=== PATIENT | male | born 1990 | race Asian ===

== ENCOUNTER 2024-07-16 07:56 | Day surgery (SDC) | payer BC ==
[2024-07-15 13:22] VITALS: BMI 28.3
[2024-07-16] MEDS ORDERED: AFRIN NASAL MIST 15 ML BOT ONE ×2 (08:01→10:44)
[2024-07-16] MEDS ORDERED: EPINEPHrine 1 MG/ML VIAL ONE (08:01)
[2024-07-16] MEDS ORDERED: Mupirocin 2% Ointment 22 GM Tube ONE (08:01)
[2024-07-16] MEDS ORDERED: Lidocaine 1% w/Epinephrine 1:200K 30 ML VIAL ONE (08:01)
[2024-07-16] MEDS ORDERED: fentaNYL 50 mcg/mL 1 mL Vial ONE (10:49)
[2024-07-16] MEDS ORDERED: PROPOFOL 20 ML ONE (10:49)
[2024-07-16] MEDS ORDERED: Dexamethasone 4 mg/ml Vial ONE (10:51)
[2024-07-16] MEDS ORDERED: Lidocaine 1% PF 5 ML VIAL ONE (10:51)
[2024-07-16] MEDS ORDERED: Ondansetron PF 4 MG/2 ML Vial ONE (10:51)
[2024-07-16] MEDS ORDERED: Acetaminophen 500 MG TAB ONE (10:57)
[2024-07-16] MEDS ORDERED: Oxymetazoline HCl 0.05% ( 15 ML ) ONE (10:58)
[2024-07-16] MEDS ORDERED: SUCCINYLCHOLINE/SOD CL,ISO/PF 200 MG/10 ML SYRINGE FS ONE (11:12)
[2024-07-16] MEDS ORDERED: PHENYLEPHRINE-NS 100 MCG/ML 10 ML SYRINGE ONE (12:07)
[2024-07-16] MEDS ORDERED: Hydrocodone-Acetamin 15 ML UDCUP ONE (13:48)
== END 2024-07-16 14:30 | disposition home or self-care (01) ==
LOC: CSHSDC 07:56
PROVIDERS: ATTEND Specialist
PROC: 099X8ZZ Drainage of Left Sphenoid Sinus, Via Natural or Artificial Opening Endoscopic (ICD-10-PCS; principal; 2024-07-16)
PROC: 099Q8ZZ Drainage of Right Maxillary Sinus, Via Natural or Artificial Opening Endoscopic (ICD-10-PCS; principal; 2024-07-16)
PROC: 09BS8ZZ Excision of Right Frontal Sinus, Via Natural or Artificial Opening Endoscopic (ICD-10-PCS; principal; 2024-07-16)
PROC: 09TV8ZZ Resection of Left Ethmoid Sinus, Via Natural or Artificial Opening Endoscopic (ICD-10-PCS; principal; 2024-07-16)
PROC: 099W8ZZ Drainage of Right Sphenoid Sinus, Via Natural or Artificial Opening Endoscopic (ICD-10-PCS; principal; 2024-07-16)
PROC: 099R8ZZ Drainage of Left Maxillary Sinus, Via Natural or Artificial Opening Endoscopic (ICD-10-PCS; principal; 2024-07-16)
PROC: 09BT8ZZ Excision of Left Frontal Sinus, Via Natural or Artificial Opening Endoscopic (ICD-10-PCS; principal; 2024-07-16)
PROC: 09SM4ZZ Reposition Nasal Septum, Percutaneous Endoscopic Approach (ICD-10-PCS; principal; 2024-07-16)
PROC: 09TU8ZZ Resection of Right Ethmoid Sinus, Via Natural or Artificial Opening Endoscopic (ICD-10-PCS; principal; 2024-07-16)
PROC: 09TL8ZZ Resection of Nasal Turbinate, Via Natural or Artificial Opening Endoscopic (ICD-10-PCS; principal; 2024-07-16)
DX: J34.2 Deviated nasal septum (principal); J34.3 Hypertrophy of nasal turbinates; J32.0 Chronic maxillary sinusitis; J30.1 Allergic rhinitis due to pollen; J30.81 Allergic rhinitis due to animal (cat) (dog) hair and dander; J30.89 Other allergic rhinitis; E78.5 Hyperlipidemia, unspecified; G47.33 Obstructive sleep apnea (adult) (pediatric); Z79.51 Long term (current) use of inhaled steroids; Z79.899 Other long term (current) drug therapy
CPT/HCPCS: J0171; J1100; J2405; J2704; J3010